=== PATIENT | male | born 1965 | race Caucasian/White ===

== ENCOUNTER 2016-11-11 10:07 | Emergency (ER) | payer MEDICARE ==
[~2016-11-11] VITALS: Ht 185.4 cm; Wt 68.0 kg
[2016-11-11 10:11] VITALS: BP 138/92; PULSE 67; RESP 21; TEMP 98.2; O2SAT 97
[2016-11-11 11:05] LABS: AUTOMATED NEUTROPHIL # 3.5 TH/MM3 (1.8-7.7); BASOPHIL # 0.1 TH/MM3 (0-0.2); BASOPHIL % 1.3 % (0.0-2.0); EOSINOPHIL # 0.1 TH/MM3 (0-0.4); EOSINOPHIL % 2.2 % (0.0-4.0); HEMATOCRIT 42.6 % (39.0-51.0); HEMO FLAGS DIFF FINAL; LYMPH % 33.8 % (9.0-44.0); LYMPHOCYTE # 2.3 TH/MM3 (1.0-4.8); MEAN CELL VOLUME 97.8 FL (80.0-100.0); MEAN CORPUSCULAR HEMOGLOBIN 34.9 PG (27.0-34.0); MEAN CORPUSCULAR HGB CONC 35.7 % (32.0-36.0); MONO % 10.6 % (0.0-8.0); NEUT % 52.1 % (16.0-70.0); PLATELET COUNT 263 TH/MM3 (150-450); RED BLOOD COUNT 4.35 MIL/MM3 (4.50-5.90); RED CELL DISTRIBUTION WIDTH 13.5 % (11.6-17.2); WHITE BLOOD COUNT 6.8 TH/MM3 (4.0-11.0)
--- NOTE | 2016-11-11 11:07 | PD ---
HPI Chief Complaint: Psychiatric Symptoms Time Seen by Provider: 10:31 Travel History International Travel<30 days: No Contact w/Intl Traveler<30days: No Traveled to known affect area: No History of Present Illness HPI This is a 51-year-old male presents emergency Department with a chief complaint of headache and hearing voices in his head. Patient states that he has heard voices a long time and thought there were his neighbor downstairs in [place]. Patient states that the voices got so severe that he needed to get on a flight and moved to [place] which she did recently. On arrival here he was distraught to find out that the voices were still here. 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 Patient is crying during the exam and states that the voices tell him to hurt himself as well. Patient is never been diagnosed with psychiatric disorder. [facility]LY [facility] Past Medical History Anxiety: Yes Depression: Yes Headaches: Yes Insomnia: Yes Psychiatric: Yes (ANXIETY, DEPRESSION, VOICES ) Respiratory: Yes (BRONC) Migraines: Yes Past Surgical History Neurologic Surgery: Yes (CYST REMOVAL BEHIND R EYE AGE 6) Social History Alcohol Use: No Tobacco Use: Yes Substance Use: Yes (SOME POT) Allergies-Medications (Allergen,Severity, Reaction): Coded Allergies: Niacin (Verified Allergy, Severe, 11/11/16) Reported Meds & Prescriptions Reported Meds & Active Scripts Active No Active Prescriptions or Reported Medications Review of Systems Except as stated in HPI: all other systems reviewed are Neg Physical Exam Narrative GENERAL: Well-developed well-nourished, crying. SKIN: Warm and dry. HEAD: Atraumatic. Normocephalic. EYES: Pupils equal and round. No scleral icterus. No injection or drainage. ENT: No nasal bleeding or discharge. Mucous membranes pink and moist. NECK: Trachea midline. No JVD. CARDIOVASCULAR: Regular rate and rhythm. No murmur appreciated. RESPIRATORY: No accessory muscle use. Clear to auscultation. Breath sounds equal bilaterally. GASTROINTESTINAL: Abdomen soft, non-tender, nondistended. Hepatic and splenic margins not palpable. MUSCULOSKELETAL: No obvious deformities. No clubbing. No cyanosis. No edema. NEUROLOGICAL: Awake and alert. No obvious cranial nerve deficits. Motor grossly within normal limits. Normal speech. PSYCHIATRIC: Depressed affect, depressed mood. Patient fairly labile and after returning from CAT scan and is screaming that the voices one-stop talking to him. Endorses suicidal ideation. Data Data Last Documented VS Vital Signs Date Time Temp Pulse Resp B/P Pulse Ox O2 Delivery O2 Flow Rate FiO2 11/11/16 10:11 98.2 67 21 138/92 97 Orders Complete Blood Count With Diff (11/11/16 10:37) Comprehensive Metabolic Panel (11/11/16 10:37) Urinalysis - C+S If Indicated (11/11/16 10:37) Psych Screen (11/11/16 10:37) Drug Screen, Random Urine (11/11/16 10:37) Alcohol (Ethanol) (11/11/16 10:37) Salicylates (Aspirin) (11/11/16 10:37) Tylenol (Acetaminophen) (11/11/16 10:37) Ct Brain W/O Iv Contrast(Rout) (11/11/16 ) Diphenhydramine Inj (Benadryl Inj) (11/11/16 11:30) Prochlorperazine Inj (Compazine Inj) (11/11/16 11:30) Lorazepam Inj (Ativan Inj) (11/11/16 12:15) Labs Laboratory Tests Test 11/11/16 11/11/16 11/11/16 10:45 11:02 12:10 White Blood Count 6.8 TH/MM3 Red Blood Count 4.35 MIL/MM3 Hemoglobin 15.2 GM/DL Hematocrit 42.6 % Mean Corpuscular Volume 97.8 FL Mean Corpuscular Hemoglobin 34.9 PG Mean Corpuscular Hemoglobin 35.7 % Concent Red Cell Distribution Width 13.5 % Platelet Count 263 TH/MM3 Mean Platelet Volume 8.0 FL Neutrophils (%) (Auto) 52.1 % Lymphocytes (%) (Auto) 33.8 % Monocytes (%) (Auto) 10.6 % Eosinophils (%) (Auto) 2.2 % Basophils (%) (Auto) 1.3 % Neutrophils # (Auto) 3.5 TH/MM3 Lymphocytes # (Auto) 2.3 TH/MM3 Monocytes # (Auto) 0.7 TH/MM3 Eosinophils # (Auto) 0.1 TH/MM3 Basophils # (Auto) 0.1 TH/MM3 CBC Comment DIFF FINAL Differential Comment Sodium Level 141 MEQ/L Potassium Level 4.2 MEQ/L Chloride Level 107 MEQ/L Carbon Dioxide Level 27.4 MEQ/L Anion Gap 7 MEQ/L Blood Urea Nitrogen 14 MG/DL Creatinine 0.96 MG/DL Estimat Glomerular Filtration 83 ML/MIN Rate Random Glucose 82 MG/DL Calcium Level 8.9 MG/DL Total Bilirubin 0.6 MG/DL Aspartate Amino Transf 21 U/L (AST/SGOT) Alanine Aminotransferase 26 U/L (ALT/SGPT) Alkaline Phosphatase 63 U/L Total Protein 7.0 GM/DL Albumin 4.1 GM/DL Acetaminophen Level LESS THAN 2.0 MCG/ML Ethyl Alcohol Level LESS THAN 3 MG/DL Salicylates Level 2.5 MG/DL Urine Color YELLOW Urine Turbidity CLEAR Urine pH 6.5 Urine Specific [place] 1.012 Urine Protein NEG mg/dL Urine Glucose (UA) NEG mg/dL Urine Ketones NEG mg/dL Urine Occult Blood NEG Urine Nitrite NEG Urine Bilirubin NEG Urine Urobilinogen LESS THAN 2.0 MG/DL Urine Leukocyte Esterase NEG Urine RBC 1 /hpf Urine WBC 1 /hpf Urine Mucus FEW /lpf Microscopic Urinalysis Comment CULT NOT INDICATED Urine Opiates Screen NEG Urine Barbiturates Screen NEG Urine Amphetamines Screen NEG Urine Benzodiazepines Screen NEG Urine Cocaine Screen POS Urine Cannabinoids Screen POS MDM Medical Decision Making Medical Screen Exam Complete: Yes Emergency Medical Condition: Yes Differential Diagnosis Psychosis, headache, depression, substance abuse, electrolyte abnormality. Narrative Course Supa acted by me in the emergency department for bizarre behavior suicidal ideation. Tylenol salicylates CBC CMP within normal limits. CT head performed and negative. Patient after returning from CT scanner is becoming more agitated given Ativan 2 mg IV. He was also given Benadryl and Compazine for his headache prior to the Ativan. Patient much more compliant after Ativan was given. Patient medically stable for psychiatric evaluation and disposition. He was placed under Cowart act by me. Diagnosis Primary Impression: Acute psychosis Scripts No Active Prescriptions or Reported Meds Disposition: 01 DISCHARGE HOME Condition: Stable Ronaldo High MD Nov 11, 2016 11:07
[2016-11-11 11:28] LABS: ANION GAP 7 MEQ/L (5-15); AST (GOT) 21 U/L (15-37); BICARBONATE 27.4 MEQ/L (21.0-32.0); BLOOD UREA NITROGEN 14 MG/DL (7-18); CHLORIDE 107 MEQ/L (98-107); GLOMERULAR FILTRATION RATE 83 ML/MIN (>89); POTASSIUM 4.2 MEQ/L (3.5-5.1); SODIUM (NA) 141 MEQ/L (136-145)
[2016-11-11] MEDS ORDERED: diphenhydrAMINE HCL 50 MG/ML VIAL IV PUSH ONE (11:30)
[2016-11-11] MEDS ORDERED: PROCHLORPERAZINE INJ 10 MG/2 ML VIAL IVS ONE (11:30)
[2016-11-11 11:31] LABS: ALKALINE PHOSPHATASE 63 U/L (45-117); ALT (GPT) 26 U/L (12-78); TOTAL BILIRUBIN ADULT 0.6 MG/DL (0.2-1.0)
[2016-11-11 11:38] LABS: ACETAMINOPHEN LESS THAN 2.0 MCG/ML (10.0-30.0)
[2016-11-11] MEDS ORDERED: LORazepam 2 MG/ML VIAL IV PUSH ONE (12:15)
[2016-11-11 12:31] LABS: BLOOD, URINE NEG (NEG); COMMENT (UR) CULT NOT INDICATED; CULTURE IF INDICATED CULT NOT INDICATED; GLUCOSE,URINE NEG (NEG); KETONE, URINE NEG (NEG); MUCUS URINE FEW /lpf (OCC); NITRITE,URINE NEG (NEG); PH, URINE 6.5 (5.0-8.5); URINE COLOR YELLOW (YELLW/STRAW)
[2016-11-11 12:32] LABS: AMPHETAMINE, URINE NEG (NEG); BARBITURATES, URINE NEG (NEG); COCAINE, URINE POS (NEG)
--- NOTE | 2016-11-11 13:20 | RADRPT ---
EXAM DATE/TIME: 11/11/2016 12:06 [facility] COMPARISON: No previous studies available for comparison. INDICATIONS : Altered mental status, right side headache. RADIATION DOSE: 35.93 CTDIvol (mGy) MEDICAL HISTORY : None SURGICAL HISTORY : Cyst removed from brain as child. ENCOUNTER: Initial ACUITY: 1 day PAIN SCALE: 4/10 LOCATION: Right cranial TECHNIQUE: Multiple contiguous axial images were obtained of the head. Using automated exposure control and adj ustment of the mA and/or kV according to patient size, radiation dose was kept as low as reasonably a chievable to obtain optimal diagnostic quality images. FINDINGS: CEREBRUM: The ventricles are normal for age. No evidence of midline shift, mass lesion, hemorrhage or acute in farction. No extra-axial fluid collections are seen. POSTERIOR FOSSA: The cerebellum and brainstem are intact. The 4th ventricle is midline. The cerebellopontine angle i s unremarkable. EXTRACRANIAL: Mild to moderate mucosal thickening ethmoid sinuses. SKULL: The calvaria is intact. No evidence of skull fracture. CONCLUSION: Bilateral ethmoid sinus disease. No acute intracranial findings identified. Jerzy Easton MD on November 11, 2016 at 13:17 Board Certified Radiologist. This report was verified electronically.
[2016-11-11 16:01] VITALS: BP 109/63; PULSE 60; RESP 18; TEMP 98.7; O2SAT 98
[2016-11-11 22:24] VITALS: BP 98/68; PULSE 59; RESP 18
[2016-11-12 02:07] VITALS: BP 120/68; PULSE 90; RESP 18; O2SAT 95; O2SAT 98
[2016-11-12 06:38] VITALS: BP 112/67; PULSE 63; RESP 18; O2SAT 97
[2016-11-12 10:46] VITALS: BP 112/67
[2016-11-12 12:00] VITALS: BP 123/84; PULSE 91; RESP 18
== END 2016-11-12 14:21 | disposition home or self-care (01) ==
LOC: NEPE 10:07 → NEPJ 11-12 14:21
DX: F23 Brief psychotic disorder (principal); R51 Headache; F41.8 Other specified anxiety disorders; G47.00 Insomnia, unspecified; Z72.0 Tobacco use
CPT/HCPCS: 70450; 80053; 80307; 81001; 85025; 96374; 96375; 99285; J0780; J1200; J2060; 80320; 80329; G0480

== ENCOUNTER 2016-12-28 19:17 | Inpatient (IN) | payer MEDICARE, OTHER ==
[~2016-12-28] VITALS: Ht 185.4 cm; Wt 68.5 kg
[2016-12-28 19:26] VITALS: BP 123/91; PULSE 91; RESP 18; TEMP 96.9; O2SAT 95
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
[2016-12-28 20:18] LABS: AUTOMATED NEUTROPHIL # 5.4 TH/MM3 (1.8-7.7); BASOPHIL # 0.1 TH/MM3 (0-0.2); BASOPHIL % 0.9 % (0.0-2.0); EOSINOPHIL # 0.4 TH/MM3 (0-0.4); HEMO FLAGS DIFF FINAL; LYMPH % 26.2 % (9.0-44.0); LYMPHOCYTE # 2.4 TH/MM3 (1.0-4.8); MEAN CELL VOLUME 95.9 FL (80.0-100.0); MEAN CORPUSCULAR HEMOGLOBIN 33.6 PG (27.0-34.0); MONO % 9.2 % (0.0-8.0); NEUT % 59.7 % (16.0-70.0); PLATELET COUNT 297 TH/MM3 (150-450); RED BLOOD COUNT 4.49 MIL/MM3 (4.50-5.90); RED CELL DISTRIBUTION WIDTH 13.4 % (11.6-17.2)
[2016-12-28 20:30] LABS: ANION GAP 6 MEQ/L (5-15)
[2016-12-28 20:33] LABS: ALKALINE PHOSPHATASE 78 U/L (45-117); ALT (GPT) 25 U/L (12-78); AST (GOT) 14 U/L (15-37); BLOOD UREA NITROGEN 18 MG/DL (7-18); CHLORIDE 106 MEQ/L (98-107); GLOMERULAR FILTRATION RATE 74 ML/MIN (>89); POTASSIUM 4.1 MEQ/L (3.5-5.1); SODIUM (NA) 140 MEQ/L (136-145); TOTAL BILIRUBIN ADULT 0.3 MG/DL (0.2-1.0)
[2016-12-28] MEDS ORDERED: QUET1TAB9 PO (20:53)
[2016-12-28 23:22] VITALS: BP 122/77; PULSE 87; RESP 16; O2SAT 98
[2016-12-29 03:01] LABS: AMPHETAMINE, URINE NEG (NEG); BARBITURATES, URINE NEG (NEG); COCAINE, URINE NEG (NEG)
[2016-12-29] MEDS ORDERED: MAGNESIUM HYDROXIDE SUSP 30 ML CUP PO PRN (08:15)
[2016-12-29] MEDS ORDERED: BENZTROPINE MESYLATE 2 MG/2 ML VIAL IM PRN (08:15)
[2016-12-29] MEDS ORDERED: BENZTROPINE MESYLATE 1 MG TAB PO PRN (08:15)
[2016-12-29] MEDS ORDERED: diphenhydrAMINE HCL 50 MG CAP PO PRN (08:15)
[2016-12-29] MEDS ORDERED: LORazepam 2 MG/ML VIAL IM PRN (08:15)
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
[2016-12-29] MEDS: REMOVE OLD PATCH T-DERMAL SCH (09:00)
[2016-12-29 09:46] VITALS: BP 119/81; PULSE 72; RESP 18; TEMP 98; O2SAT 98
[2016-12-29] MEDS: NICOTINE 21 MG/24 HR PATCH T-DERMAL SCH (10:03)
[2016-12-29] MEDS: QUEtiapine FUMARATE 100 MG TAB PO SCH (10:19)
[2016-12-29 11:37] VITALS: BP 112/71; PULSE 79; RESP 18; TEMP 97.8
[2016-12-29] MEDS: LORazepam 1 MG TAB PO PRN (14:45)
[2016-12-29] MEDS: IBUPROFEN 600 MG TAB PO PRN (15:24)
[2016-12-29 19:11] VITALS: BP 100/65; PULSE 80; RESP 16; TEMP 98.9; O2SAT 98
[2016-12-29] MEDS: QUEtiapine FUMARATE 200 MG TAB PO SCH (21:33)
[2016-12-29] MEDS: ACETAMINOPHEN 325 MG TAB PO PRN (21:33)
[2016-12-30] MEDS: NICOTINE 21 MG/24 HR PATCH T-DERMAL SCH (08:43)
[2016-12-30] MEDS: QUEtiapine FUMARATE 100 MG TAB PO SCH (08:43)
[2016-12-30] MEDS: REMOVE OLD PATCH T-DERMAL SCH (08:46)
[2016-12-30 09:57] LABS: ANION GAP 4 MEQ/L (5-15); BICARBONATE 32.1 MEQ/L (21.0-32.0); BLOOD UREA NITROGEN 16 MG/DL (7-18); CHLORIDE 105 MEQ/L (98-107); GLOMERULAR FILTRATION RATE 77 ML/MIN (>89); LDL CHOLESTEROL 83 MG/DL (0-99); POTASSIUM 4.7 MEQ/L (3.5-5.1); SODIUM (NA) 141 MEQ/L (136-145)
[2016-12-30 11:07] LABS: HEMOGLOBIN A1a 1.4 %; HEMOGLOBIN A1b 1.7 %; HEMOGLOBIN Ao 84.7 %; HEMOGLOBIN LA1C 2.1 %; HEMOGLOBIN P3 3.9 %
[2016-12-30] MEDS: ALUMINUM/MAGNESIUM/SIMETH 30 ML CUP PO PRN (17:50)
[2016-12-30 18:07] VITALS: BP 112/69; PULSE 77; RESP 18; TEMP 98.4; O2SAT 97
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
[2016-12-30] MEDS: QUEtiapine FUMARATE 200 MG TAB PO SCH (21:53)
[2016-12-30] MEDS: LORazepam 1 MG TAB PO PRN (21:56)
[2016-12-31 05:26] VITALS: BP 103/57; PULSE 78; RESP 18; TEMP 98; O2SAT 98
[2016-12-31] MEDS: REMOVE OLD PATCH T-DERMAL SCH (08:22)
[2016-12-31] MEDS: NICOTINE 21 MG/24 HR PATCH T-DERMAL SCH (08:22)
[2016-12-31] MEDS: QUEtiapine FUMARATE 100 MG TAB PO SCH (08:22)
[2016-12-31] MEDS: ACETAMINOPHEN 325 MG TAB PO PRN (15:21)
[2016-12-31 18:00] VITALS: BP 116/67; PULSE 92; RESP 18; TEMP 98.5; O2SAT 97
--- NOTE | 2016-12-31 21:28 | HHI.PYPN ---
Subjective Remarks Pt seen and discussed with staff. Pt reports that AH have diminished today and he denies medication side effects. He has been out of room and more engaged in milieu. NO SI/HI. Objective Alert: Yes [place]: Person, Place, Date, Situation Mood: Anxious Affect: Restricted Memory Intact: Immediate, Recent, Remote Hallucinations: Other (none) Delusions: Yes Delusion Type: Paranoid Suicidal: Ideation (denies) Homicidal: Ideation (denies) Insight/Judgment limited Vitals/IOs Vital Signs Date Time Temp Pulse Resp B/P Pulse Ox O2 Delivery O2 Flow Rate FiO2 12/31/16 18:00 98.5 92 18 116/67 97 12/29/16 09:46 Room Air Assessment & Plan Problem List: (1) Other psychotic disorder not due to a substance or known physiological condition ICD Code: F28 Assessment & Plan Continue current tx plan. Estimated LOS: days Justification for Cont. Inpt. impairments in reality construction Trinh Rios MD Dec 31, 2016 21:27
[2016-12-31] MEDS: IBUPROFEN 600 MG TAB PO PRN (21:40)
[2016-12-31] MEDS: LORazepam 1 MG TAB PO PRN (21:40)
[2016-12-31] MEDS: QUEtiapine FUMARATE 200 MG TAB PO SCH (21:40)
[2017-01-01 06:41] VITALS: BP 116/62; PULSE 76; RESP 18; TEMP 97.7; O2SAT 96
[2017-01-01] MEDS: REMOVE OLD PATCH T-DERMAL SCH (09:00)
[2017-01-01] MEDS: QUEtiapine FUMARATE 100 MG TAB PO SCH (09:17)
[2017-01-01] MEDS: NICOTINE 21 MG/24 HR PATCH T-DERMAL SCH (09:20)
--- NOTE | 2017-01-01 15:48 | HHI.PYPN ---
Subjective Remarks Patient seen in [facility] with nurse Cherie, chart reviewed. Patient appears somewhat silly and childlike, states his auditory hallucinations are softening somewhat not as aggressive or intimidating as before. Is compliant with medication. He denies suicidality at the present time. Though it appears he has been in multiple psychiatric units the area over the last few weeks. For now continue treatment. Review of Systems Except as stated in HPI: all other systems reviewed are Neg Objective Alert: Yes [place]: Person, Place, Date, Situation Mood: Anxious Affect: Restricted Memory Intact: Immediate, Recent, Remote Hallucinations: Other (none) Delusions: Yes Delusion Type: Paranoid Suicidal: Ideation (denies) Homicidal: Ideation (denies) Insight/Judgment Poor Vitals/IOs Vital Signs Date Time Temp Pulse Resp B/P Pulse Ox O2 Delivery O2 Flow Rate FiO2 01/01/17 06:41 97.7 76 18 116/62 96 12/29/16 09:46 Room Air Intake and Output 12/31/16 12/31/16 01/01/17 08:00 16:00 00:00 Intake Total 480 ml Balance 480 ml Assessment & Plan Problem List: (1) Other psychotic disorder not due to a substance or known physiological condition ICD Code: F28 Assessment & Plan Estimated LOS: days patient psychosis is softening, his compliant medications, for now continue treatment Justification for Cont. Inpt. At this time patient will decompensate if placed in a lower level of care Discharge Planning To be determined Chandra Chavez MD Jan 01, 2017 15:48
[2017-01-01 19:52] VITALS: BP 119/67; PULSE 83; RESP 18; TEMP 97.6; O2SAT 99
[2017-01-01] MEDS: QUEtiapine FUMARATE 200 MG TAB PO SCH (21:17)
[2017-01-01] MEDS: ALUMINUM/MAGNESIUM/SIMETH 30 ML CUP PO PRN (22:22)
[2017-01-02 06:08] VITALS: BP 115/74; PULSE 77; RESP 18; TEMP 97; O2SAT 97
[2017-01-02] MEDS: REMOVE OLD PATCH T-DERMAL SCH (09:00)
[2017-01-02] MEDS: QUEtiapine FUMARATE 100 MG TAB PO SCH (09:11)
[2017-01-02] MEDS: NICOTINE 21 MG/24 HR PATCH T-DERMAL SCH (09:12)
--- NOTE | 2017-01-02 11:59 | HHI.PYPN ---
Subjective Remarks Patient seen in activities room with nurse Sana, chart reviewed. Patient continues somewhat superficial childlike and intense though he says he is feeling better. He states the voices are now gone and he denies any suicidality , he is compliant with medication. For now continue treatment Review of Systems Except as stated in HPI: all other systems reviewed are Neg Objective Alert: Yes [place]: Person, Place, Date, Situation Mood: Anxious Affect: Restricted Memory Intact: Immediate, Recent, Remote Hallucinations: Other (none) Delusions: Yes Delusion Type: Paranoid (decreasing) Suicidal: Ideation (denies) Homicidal: Ideation (denies) Insight/Judgment Poor Vitals/IOs Vital Signs Date Time Temp Pulse Resp B/P Pulse Ox O2 Delivery O2 Flow Rate FiO2 01/02/17 06:08 97.0 77 18 115/74 97 12/29/16 09:46 Room Air Assessment & Plan Problem List: (1) Other psychotic disorder not due to a substance or known physiological condition ICD Code: F28 Assessment & Plan Estimated LOS: days patient psychosis is slowly resolving. Is compliant with medications. For now continue treatment Justification for Cont. Inpt. At this time patient will decompensate if placed in a lower level of care Discharge Planning To be determined Chandra Chavez MD Jan 02, 2017 11:59
[2017-01-02 19:00] VITALS: BP 107/76; PULSE 76; RESP 18; TEMP 97.9; O2SAT 96
[2017-01-02] MEDS: ACETAMINOPHEN 325 MG TAB PO PRN (21:29)
[2017-01-02] MEDS: QUEtiapine FUMARATE 200 MG TAB PO SCH (21:30)
[2017-01-03 06:00] VITALS: BP 118/72; PULSE 70; RESP 18; TEMP 98.3; O2SAT 97
[2017-01-03] MEDS: REMOVE OLD PATCH T-DERMAL SCH (09:00)
[2017-01-03] MEDS ORDERED: QUET1TAB8 PO (09:04)
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
[2017-01-03] MEDS: QUEtiapine FUMARATE 100 MG TAB PO SCH (09:14)
[2017-01-03] MEDS: NICOTINE 21 MG/24 HR PATCH T-DERMAL SCH (09:16)
== END 2017-01-03 13:30 | disposition home or self-care (01) | DRG 885 ==
LOC: NEDAMB 19:17 → NEDA 12-29 08:15 → H260 12-29 10:40
PROVIDERS: ADMIT Psychiatry & Neurology Psychiatry; ATTEND Psychiatry & Neurology Psychiatry
DX: F28 Other psychotic disorder not due to a substance or known physiological condition (principal); R45.851 Suicidal ideations; Z59.0 Homelessness; G44.009 Cluster headache syndrome, unspecified, not intractable; F12.90 Cannabis use, unspecified, uncomplicated; F17.210 Nicotine dependence, cigarettes, uncomplicated
CPT/HCPCS: 80048; 80053; 80061; 80307; 82607; 83036; 84443; 85025; 86592; 99284; Q0163

== ENCOUNTER 2017-02-10 21:52 | Observation (INO) | payer MEDICARE, OTHER ==
[~2017-02-10] VITALS: Ht 185.4 cm; Wt 70.0 kg
[~2017-02-10 21:52] MED LIST: QUET1TAB8 PO
--- NOTE | 2017-02-10 22:03 | PD ---
HPI Chief Complaint: chest pain Time Seen by Provider: 22:03 Travel History International Travel<30 days: No Contact w/Intl Traveler<30days: No History of Present Illness HPI 51-year-old male with PMH of chronic right leg pain, chronic headaches presents to the ED for evaluation of a 10 hour history of left-sided chest pain. Onset at rest, described as a tightness. Gradual onset, lasts 20-30 seconds before resolving spontaneously. Patient endorses associated diaphoresis and shortness of breath. He denies radiation of the pain, nausea or vomiting. He denies recent history of fever, chills, productive cough. He's never had this kind of pain before. He has never had his heart evaluated. He endorses increased stress over the last week, states that he is homeless, having difficulties receiving his social security check. He denies suicidal or homicidal ideation. He denies alcohol or illicit drug use. He is a current smoker. PFSH Past Medical History Anxiety: Yes Depression: Yes Cancer: Yes (tumors were removed but may be non cancerous ) Cardiovascular Problems: No Diabetes: No Headaches: Yes Insomnia: Yes Musculoskeletal: No Psychiatric: No Respiratory: Yes ([facility]) Migraines: Yes Seizures: No Past Surgical History Neurologic Surgery: Yes (CYST REMOVAL BEHIND R EYE AGE 6) Social History Alcohol Use: No Tobacco Use: Yes Substance Use: Yes (admits to occasional marijuana use) Allergies-Medications (Allergen,Severity, Reaction): Coded Allergies: Niacin (Verified Allergy, Severe, 02/10/17) Reported Meds & Prescriptions Reported Meds & Active Scripts Active Quetiapine (Quetiapine Fumarate) 100 Mg Tab 100 Mg PO DIRECTED 1 po am, 2 po hs Reported Seroquel (Quetiapine Fumarate) 200 Mg Tab 200 Mg PO HS Review of Systems Except as stated in HPI: all other systems reviewed are Neg Physical Exam Narrative GENERAL: Well-nourished, well-developed, disheveled, tremulous white male in no acute distress. SKIN: Focused skin assessment warm/dry. HEAD: Normocephalic. EYES: No scleral icterus. No injection or drainage. PERRLA. EOMI. NECK: Supple, trachea midline. No JVD or lymphadenopathy. CARDIOVASCULAR: Regular rate and rhythm without murmurs, gallops, or rubs. CHEST: Tender to palpation over the left precordium. Without deformity or crepitus. No retractions. RESPIRATORY: Breath sounds equal bilaterally. No accessory muscle use. GASTROINTESTINAL: Abdomen soft, non-tender, nondistended. Active bowel sounds. MUSCULOSKELETAL: No cyanosis, or edema. Patient is extremities spontaneously. BACK: Nontender without obvious deformity. No CVA tenderness. Data Data Last Documented VS Vital Signs Date Time Temp Pulse Resp B/P Pulse Ox O2 Delivery O2 Flow Rate FiO2 02/10/17 22:08 98.5 67 20 85/ Orders Electrocardiogram (02/10/17 22:36) Basic Metabolic Panel (Bmp) (02/10/17 22:36) Ckmb (Isoenzyme) Profile (02/10/17 22:36) Complete Blood Count With Diff (02/10/17 22:36) Magnesium (Mg) (02/10/17 22:36) Prothrombin Time / Inr (Pt) (02/10/17 22:36) Act Partial Throm Time (Ptt) (02/10/17 22:36) Troponin I (02/10/17 22:36) Chest, Single Ap (02/10/17 22:36) Ecg Monitoring (02/10/17 22:36) Bilateral Bp Monitoring (02/10/17 22:36) Iv Access Insert/Monitor (02/10/17 22:36) Oximetry (02/10/17 22:36) Aspirin Chew (Aspirin Chew) (02/10/17 22:45) Sodium Chloride 0.9% Flush (Ns Flush) (02/10/17 22:45) Nitroglycerin Sl (Nitrostat Sl) (02/10/17 22:45) Sodium Chlorid 0.9% 500 Ml Inj (Ns 500 M (02/10/17 22:45) Ibuprofen (Motrin) (02/10/17 22:45) MDM Medical Decision Making Medical Screen Exam Complete: Yes Emergency Medical Condition: Yes Differential Diagnosis Chest pain versus musculoskeletal pain versus ACS versus anxiety versus alcohol withdrawal versus other Narrative Course 51-year-old male with PMH of chronic right leg pain, chronic headaches presents to the ED for evaluation of a 10 hour history of left-sided chest pain. Onset at rest, described as a tightness. Gradual onset, lasts 20-30 seconds before resolving spontaneously. Patient endorses associated diaphoresis and shortness of breath. He denies radiation of the pain, nausea or vomiting. He denies recent history of fever, chills, productive cough. He's never had this kind of pain before. He has never had a cardiac workup. He endorses increased stress over the last week, states that he is homeless, having difficulties receiving his social security check. He denies suicidal or homicidal ideation. He denies alcohol or illicit drug use. He is a current smoker. Vitals reviewed. Physical exam reveals a tremulous white male in no acute distress. There is reproducible tenderness to palpation over the left precordium but the physical exam is otherwise unremarkable. Patient was administered ASA, nitroglycerin glycerin 2, 600 mg ibuprofen. EKG: Rate 70, sinus rhythm. MT interval 135, QRS 101, QTc 387. Normal axis. No acute ST changes. Reviewed by Dr. Catalan. CBC, CMP, UA, tox screen, alcohol level, cardiac enzymes, chest x-ray ordered and pending at this time. Anticipate admission to the chest pain center. Dr. Catalan to assume care of this patient. Please see her note for disposition. Siobhan Brown February 10, 2017 22:03
[2017-02-10 22:08] VITALS: BP_SYST 85; PULSE 67; RESP 20; TEMP 98.5
[2017-02-10] MEDS ORDERED: SERO200T PO (22:08)
[2017-02-10] MEDS ORDERED: IBUPROFEN 600 MG TAB PO ONE (22:45)
[2017-02-10] MEDS ORDERED: SODIUM CHLORID 0.9% 500 ML INJ 500 ML IV ONE (22:45)
[2017-02-10] MEDS ORDERED: ASPIRIN 81 MG CHEW TAB PO ONE (22:45)
[2017-02-10] MEDS ORDERED: SODIUM CHLORIDE 0.9% FLUSH 10 ML FLUSH IVF PRN (22:45)
[2017-02-10 23:00] VITALS: BP 119/77; PULSE 62; RESP 20
[2017-02-10] MEDS: NITROGLYCERIN 0.4 MG SL 25 TABS/BTL SL SCH (23:22)
--- NOTE | 2017-02-10 23:32 | RADRPT ---
EXAM DATE/TIME: 02/10/2017 22:51 [facility] COMPARISON: No previous studies available for comparison. INDICATIONS : Left side chest pain, cough MEDICAL HISTORY : None. SURGICAL HISTORY : None. ENCOUNTER: Initial ACUITY: 1 day PAIN SCORE: 6/10 LOCATION: Left chest FINDINGS: A single view of the chest demonstrates the lungs to be symmetrically aerated without evidence of mas s, infiltrate or effusion. The cardiomediastinal contours are unremarkable. Osseous structures are intact. CONCLUSION: No acute disease. Juni Krishnamurthy MD on February 10, 2017 at 23:30 Board Certified Radiologist. This report was verified electronically.
[2017-02-10 23:33] LABS: AUTOMATED NEUTROPHIL # 3.7 TH/MM3 (1.8-7.7); BASOPHIL # 0.1 TH/MM3 (0-0.2); BASOPHIL % 1.4 % (0.0-2.0); EOSINOPHIL # 0.2 TH/MM3 (0-0.4); EOSINOPHIL % 2.3 % (0.0-4.0); HEMATOCRIT 41.1 % (39.0-51.0); HEMO FLAGS DIFF FINAL; LYMPH % 35.4 % (9.0-44.0); LYMPHOCYTE # 2.7 TH/MM3 (1.0-4.8); MEAN CELL VOLUME 96.8 FL (80.0-100.0); MEAN CORPUSCULAR HEMOGLOBIN 32.8 PG (27.0-34.0); MEAN CORPUSCULAR HGB CONC 33.9 % (32.0-36.0); MONO % 12.8 % (0.0-8.0); NEUT % 48.1 % (16.0-70.0); PLATELET COUNT 261 TH/MM3 (150-450); RED BLOOD COUNT 4.25 MIL/MM3 (4.50-5.90); RED CELL DISTRIBUTION WIDTH 13.7 % (11.6-17.2); WHITE BLOOD COUNT 7.6 TH/MM3 (4.0-11.0)
[2017-02-10 23:43] LABS: APTT (PATIENT) 27.4 SEC (24.3-30.1); PROTHROMBIN TIME - PATIENT 11.5 SEC (9.8-11.6)
[2017-02-10 23:44] LABS: BLOOD, URINE TRACE (NEG); COMMENT (UR) CULT NOT INDICATED; CULTURE IF INDICATED CULT NOT INDICATED; GLUCOSE,URINE NEG (NEG); KETONE, URINE TRACE mg/dL (NEG); MUCUS URINE FEW /lpf (OCC); NITRITE,URINE NEG (NEG); URINE COLOR YELLOW (YELLW/STRAW)
[2017-02-10 23:47] LABS: ANION GAP 9 MEQ/L (5-15); BLOOD UREA NITROGEN 23 MG/DL (7-18); CHLORIDE 108 MEQ/L (98-107); GLOMERULAR FILTRATION RATE 71 ML/MIN (>89); MAGNESIUM 2.2 MG/DL (1.5-2.5); POTASSIUM 3.8 MEQ/L (3.5-5.1); SODIUM (NA) 144 MEQ/L (136-145)
[2017-02-10 23:49] LABS: AMPHETAMINE, URINE NEG (NEG); BARBITURATES, URINE NEG (NEG); COCAINE, URINE NEG (NEG)
[2017-02-10 23:52] LABS: CREATINE KINASE 148 U/L (39-308)
[2017-02-11] VITALS (10 sets, daily range): BP systolic 105–129; BP diastolic 50–79; PULSE 56–77; RESP 14–20; TEMP 97.6–98.3; O2SAT 93–97
[2017-02-11 00:05] LABS: CKMB 1.6 NG/ML (0.5-3.6)
--- NOTE | 2017-02-11 00:07 | PD ---
Physical Exam Date Seen by Provider: February 11, 2017 Time Seen by Provider: 23:30 Narrative assumed patient care from A Kevin BANDA Data Data Last Documented VS Vital Signs Date Time Temp Pulse Resp B/P Pulse Ox O2 Delivery O2 Flow Rate FiO2 02/10/17 22:08 98.5 67 20 85/ Orders Electrocardiogram (02/10/17 22:36) Basic Metabolic Panel (Bmp) (02/10/17 22:36) Ckmb (Isoenzyme) Profile (02/10/17 22:36) Complete Blood Count With Diff (02/10/17 22:36) Magnesium (Mg) (02/10/17 22:36) Prothrombin Time / Inr (Pt) (02/10/17 22:36) Act Partial Throm Time (Ptt) (02/10/17 22:36) Troponin I (02/10/17 22:36) Chest, Single Ap (02/10/17 22:36) Ecg Monitoring (02/10/17 22:36) Bilateral Bp Monitoring (02/10/17 22:36) Iv Access Insert/Monitor (02/10/17 22:36) Oximetry (02/10/17 22:36) Aspirin Chew (Aspirin Chew) (02/10/17 22:45) Sodium Chloride 0.9% Flush (Ns Flush) (02/10/17 22:45) Nitroglycerin Sl (Nitrostat Sl) (02/10/17 22:45) Sodium Chlorid 0.9% 500 Ml Inj (Ns 500 M (02/10/17 22:45) Ibuprofen (Motrin) (02/10/17 22:45) Urinalysis - C+S If Indicated (02/10/17 22:46) Drug Screen, Random Urine (02/10/17 22:46) Alcohol (Ethanol) (02/10/17 22:46) CKMB (02/10/17 23:15) CKMB% (02/10/17 23:15) Alprazolam (Xanax) (02/11/17 00:15) Admit Order (Ed Use Only) (02/11/17 ) ^ Saline Lock (02/11/17 00:09) Resp Oxygen Alberto C Titrat 1-4 L (02/11/17 ) Notify Dr: Other (02/11/17 00:09) Sodium Chloride 0.9% Flush (Ns Flush) (02/11/17 09:00) Sodium Chloride 0.9% Flush (Ns Flush) (02/11/17 00:15) Activity Bed Rest With Brp (02/11/17 00:09) Vital Signs (Adult) Q4H (02/11/17 00:09) Cardiac Rhythm .As Directed (02/11/17 00:09) Notify Dr: Other .PRN (02/11/17 00:09) Notify DrBlanca Parameters (02/11/17 00:09) Resp Oxygen Nasal Cannula (02/11/17 ) Ckmb (Isoenzyme) Profile (02/11/17 02:00) Ckmb (Isoenzyme) Profile (02/11/17 05:00) Troponin I (02/11/17 02:00) Troponin I (02/11/17 05:00) Electrocardiogram (02/11/17 02:00) Electrocardiogram (02/11/17 05:00) ^ Obtain (02/11/17 00:09) Sodium Chloride 0.9% Flush (Ns Flush) (02/11/17 00:15) Sodium Chloride 0.9% Flush (Ns Flush) (02/11/17 09:00) Acetaminophen (Tylenol) (02/11/17 00:15) Acetamin-Hydrocod 325-7.5 Mg ([place] 7.5 (02/11/17 00:15) Ondansetron Inj (Zofran Inj) (02/11/17 00:15) Nitroglycerin Sl (Nitrostat Sl) (02/11/17 00:15) Aspirin (Aspirin) (02/11/17 09:00) Alprazolam (Xanax) (02/11/17 00:15) Fx Artist / Telemetry HEMANT.Q8H (02/11/17 00:09) Labs Laboratory Tests Test 02/10/17 23:15 White Blood Count 7.6 TH/MM3 Red Blood Count 4.25 MIL/MM3 Hemoglobin 13.9 GM/DL Hematocrit 41.1 % Mean Corpuscular Volume 96.8 FL Mean Corpuscular Hemoglobin 32.8 PG Mean Corpuscular Hemoglobin 33.9 % Concent Red Cell Distribution Width 13.7 % Platelet Count 261 TH/MM3 Mean Platelet Volume 8.7 FL Neutrophils (%) (Auto) 48.1 % Lymphocytes (%) (Auto) 35.4 % Monocytes (%) (Auto) 12.8 % Eosinophils (%) (Auto) 2.3 % Basophils (%) (Auto) 1.4 % Neutrophils # (Auto) 3.7 TH/MM3 Lymphocytes # (Auto) 2.7 TH/MM3 Monocytes # (Auto) 1.0 TH/MM3 Eosinophils # (Auto) 0.2 TH/MM3 Basophils # (Auto) 0.1 TH/MM3 CBC Comment DIFF FINAL Differential Comment Prothrombin Time 11.5 SEC Prothromb Time International 1.0 RATIO Ratio Activated Partial 27.4 SEC Thromboplast Time Urine Color YELLOW Urine Turbidity CLEAR Urine pH 6.0 Urine Specific [place] 1.031 Urine Protein TRACE mg/dL Urine Glucose (UA) NEG mg/dL Urine Ketones TRACE mg/dL Urine Occult Blood TRACE Urine Nitrite NEG Urine Bilirubin NEG Urine Urobilinogen LESS THAN 2.0 MG/DL Urine Leukocyte Esterase NEG Urine RBC 7 /hpf Urine WBC 2 /hpf Urine Mucus FEW /lpf Microscopic Urinalysis Comment CULT NOT INDICATED Sodium Level 144 MEQ/L Potassium Level 3.8 MEQ/L Chloride Level 108 MEQ/L Carbon Dioxide Level 27.0 MEQ/L Blood Urea Nitrogen 23 MG/DL Creatinine 1.10 MG/DL Random Glucose 86 MG/DL Calcium Level 8.4 MG/DL Magnesium Level 2.2 MG/DL Urine Opiates Screen NEG Urine Barbiturates Screen NEG Urine Amphetamines Screen NEG Urine Benzodiazepines Screen POS Urine Cocaine Screen NEG Urine Cannabinoids Screen POS Ethyl Alcohol Level LESS THAN 3 MG/DL Anion Gap 9 MEQ/L Estimat Glomerular Filtration 71 ML/MIN Rate Total Creatine Kinase 148 U/L Creatine Kinase MB 1.6 NG/ML Troponin I LESS THAN 0.02 NG/ML [facility] Medical Record Reviewed: Yes Supervised Visit with YINA: Yes Interpretation(s) EKG: Normal sinus rhythm rate [address] elevation or injury pattern change noted Last Impressions Chest X-Ray 02/10/172 Signed Impressions: Service Date/Time: Friday, February 10, 2017 22:51 - CONCLUSION: No acute disease. Juni Krishnamurthy MD CBC & BMP Diagram 02/10/17 23:15 troponin I: less than 0.02 Urine drug screen positive for cannabinoids and benzodiazepines Differential Diagnosis Chest pain, atypical chest pain, ACS, PR, musculoskeletal pain, pleurisy, costochondritis, pneumonia Narrative Course Accepted in transfer of care from Ronald Brown for chest pain or exertional resolve nitroglycerin with history of tobaccoism age 51; chest pain improved after nitroglycerin and aspirin; patient with chronic anxiety disorder given one -time dose of Xanax; no alcohol use history admits to rare cannabis use. Will admit to chest pain center to further evaluate cardiac versus noncardiac chest pain due to risk factors of female age 51 tobaccoism. Patient also with history of chronic left right femur pain that is not new and has not exacerbated and no edema of the lower extremity. Diagnosis Primary Impression: Chest pain Admitting Information Admitting Physician Requests: Mana Mcintyre MD February 11, 2017 00:07
[2017-02-11] MEDS ORDERED: ACETAMINOPHEN 500 MG CPLT PO PRN (00:15)
[2017-02-11] MEDS ORDERED: ONDANSETRON HCL 4 MG/2 ML VIAL IV PRN (00:15)
[2017-02-11] MEDS ORDERED: ALPRAZolam 0.25 MG TAB PO PRN (00:15)
[2017-02-11] MEDS ORDERED: SODIUM CHLORIDE 0.9% FLUSH 10 ML FLUSH PRN (00:15)
[2017-02-11] MEDS ORDERED: ACETAMINOPHEN/HYDROcodone 325 MG/7.5 MG TAB PO PRN (00:15)
[2017-02-11] MEDS ORDERED: SODIUM CHLORIDE 0.9% FLUSH 10 ML FLUSH IVF PRN (00:15)
[2017-02-11] MEDS ORDERED: ALPRAZolam 1 MG TAB PO ONE (00:15)
[2017-02-11] MEDS ORDERED: NITROGLYCERIN 0.4 MG SL 25 TABS/BTL SL PRN (00:15)
[2017-02-11] MEDS: NITROGLYCERIN 0.4 MG SL 25 TABS/BTL SL SCH (00:24)
[2017-02-11 02:58] LABS: CREATINE KINASE 125 U/L (39-308)
[2017-02-11 03:10] LABS: CKMB 1.5 NG/ML (0.5-3.6)
[2017-02-11 06:07] LABS: CREATINE KINASE 128 U/L (39-308)
[2017-02-11 06:19] LABS: CKMB 1.3 NG/ML (0.5-3.6)
[2017-02-11] MEDS ORDERED: ASPIRIN 325 MG TAB PO SCH (09:00)
[2017-02-11] MEDS ORDERED: SODIUM CHLORIDE 0.9% FLUSH 10 ML FLUSH SCH (09:00)
[2017-02-11] MEDS ORDERED: SODIUM CHLORIDE 0.9% FLUSH 10 ML FLUSH IV FLUSH SCH (09:00)
--- NOTE | 2017-02-11 10:59 | HHI.HP ---
HPI Primary Care Physician Unknown Chief Complaint Chest pain History of Present Illness This is a 51-year-old male that presents to ED with a complaint of left-sided chest discomfort that he describes as squeezing in nature. We'll last about 10 minutes. He's found nothing to bring on the discomfort. He also states he's had a sensation of his heart vibrating intimately also for month. When it occurs it last for about 5 minutes. He times short of breath and diaphoretic. No nausea. He cannot recall prior stress testing. Patient states he is tired of dealing with the symptoms. The nurse was concerned, he was very anxious. I asked the patient if he was having suicidal ideations and he denied this. I repeated the question infantum nurse fireworks assembler and he still denies having thoughts of wanting to harm himself or others. Review of Systems General: Patient denies fevers, chills recent, and recent travel HEENT: Patient denies headache, sore throat, difficulty swallowing. Cardiovascular: Has the chest discomfort as mentioned above. Feels as if his heart is vibrating. Denies sensation of heart beating rapidly or irregularly. No syncope. Respiratory: Denies shortness of breath or inspirational chest discomfort. Denies coughing wheezing or hemoptysis. GI: Patient denies nausea, vomiting, diarrhea, abdominal pain, bloody stools. Musculoskeletal: Patient denies joint pain or edema. Denies calf pain or edema. Neurovascular: Patient denies numbness, tingling, weakness in extremities. Denies headache. Endocrine: Denies polyuria and polydipsia. Hematologic: Denies easy bruising. Skin: Denies rash or itching. Past Family Social History Allergies: Coded Allergies: Niacin (Verified Allergy, Severe, 02/10/17) Past Medical History Depression, chronic headaches, tobacco abuse. Denies hypertension, hyperlipidemia, diabetes, and CAD. Past Surgical History Noncontributory. Reported Medications Reported Meds & Active Scripts Active Quetiapine (Quetiapine Fumarate) 100 Mg Tab 100 Mg PO DIRECTED 1 po am, 2 po hs Reported Seroquel (Quetiapine Fumarate) 200 Mg Tab 200 Mg PO HS Active Ordered Medications Current Medications Medications (Trade) Dose Ordered Sig/Alek Route Start Time Stop Time Status Last Admin (NS Flush) 2 ml UNSCH PRN IVF 02/10/17 22:45 (NS Flush) 2 ml BID IV FLUSH 02/11/17 09:00 02/11/17 09:16 (NS Flush) 2 ml UNSCH PRN IVF 02/11/17 00:15 (NS Flush) 2 ml UNSCH PRN .XX 02/11/17 00:15 (NS Flush) 2 ml BID .XX 02/11/17 09:00 02/11/17 09:14 (Tylenol) 500 mg Q4H PRN PO 02/11/17 00:15 02/11/17 09:15 ([place] 7.5-325 Mg) 1 tab Q4H PRN PO 02/11/17 00:15 (Zofran Inj) 4 mg Q6H PRN IV 02/11/17 00:15 (Nitrostat Sl) 0.4 mg Q5M PRN SL 02/11/17 00:15 (Aspirin) 325 mg DAILY PO 02/11/17 09:00 02/11/17 09:14 (Xanax) 0.25 mg Q8H PRN PO 02/11/17 00:15 Family History Denies family history of CAD. Social History Patient smokes three-quarter pack of cigarettes daily for 32 years. Denies alcohol. He smokes marijuana. Lives alone. Physical Exam Vital Signs Vital Signs Date Time Temp Pulse Resp B/P Pulse Ox O2 Delivery O2 Flow Rate FiO2 02/11/17 09:19 97 21 02/11/17 08:04 98.0 62 20 108/69 94 02/11/17 05:15 98.2 65 18 105/50 96 02/11/17 04:01 72 02/11/17 02:46 66 02/11/17 02:33 98.3 66 18 108/55 96 02/11/17 02:11 62 14 108/63 02/11/17 00:00 56 18 129/79 02/10/17 23:00 62 20 119/77 02/10/17 22:08 98.5 67 20 85/ Physical Exam GENERAL: This is a well-nourished, well-developed patient, in no apparent distress. Patient speaks in clear complete sentences. Patient is pleasant. He does appear to be anxious. HEENT: Head is atraumatic and normocephalic. Neck is supple without lymphadenopathy and trachea is midline. No JVD or carotid bruits. CARDIOVASCULAR: Regular rate and rhythm without murmurs, gallops, or rubs. RESPIRATORY: Clear to auscultation. Breath sounds equal bilaterally. No wheezes , rales, or rhonchi. Chest wall is nontender. No use of accessory muscles. GASTROINTESTINAL: Abdomen is nontender, nondistended. Abdomen soft. No obvious pulsatile mass or bruit. No CVA tenderness. Strong femoral pulses bilaterally. Normal bowel sounds in all quadrants. MUSCULOSKELETAL: Patient is moving upper and lower extremities freely. No calf tenderness or edema, no Homans sign. Strong pulses in upper and lower extremities. NEUROLOGICAL: Patient is alert and oriented. Cranial nerves 2-12 are grossly intact. No focal deficits and speech is clear. SKIN: No rash and turgor is normal. Psych: Patient admits to being anxious. Denies having suicidal ideations or homicidal thoughts. Denies hallucinations or delusions. Laboratory Laboratory Tests Test 02/10/17 02/11/17 02/11/17 23:15 02:15 05:30 White Blood Count 7.6 Red Blood Count 4.25 Hemoglobin 13.9 Hematocrit 41.1 Mean Corpuscular Volume 96.8 Mean Corpuscular Hemoglobin 32.8 Mean Corpuscular Hemoglobin 33.9 Concent Red Cell Distribution Width 13.7 Platelet Count 261 Mean Platelet Volume 8.7 Neutrophils (%) (Auto) 48.1 Lymphocytes (%) (Auto) 35.4 Monocytes (%) (Auto) 12.8 Eosinophils (%) (Auto) 2.3 Basophils (%) (Auto) 1.4 Neutrophils # (Auto) 3.7 Lymphocytes # (Auto) 2.7 Monocytes # (Auto) 1.0 Eosinophils # (Auto) 0.2 Basophils # (Auto) 0.1 CBC Comment DIFF FINAL Differential Comment Prothrombin Time 11.5 Prothromb Time International 1.0 Ratio Activated Partial 27.4 Thromboplast Time Urine Color YELLOW Urine Turbidity CLEAR Urine pH 6.0 Urine Specific [place] 1.031 Urine Protein TRACE Urine Glucose (UA) NEG Urine Ketones TRACE Urine Occult Blood TRACE Urine Nitrite NEG Urine Bilirubin NEG Urine Urobilinogen LESS THAN 2.0 Urine Leukocyte Esterase NEG Urine RBC 7 Urine WBC 2 Urine Mucus FEW Microscopic Urinalysis Comment CULT NOT INDICATED Sodium Level 144 Potassium Level 3.8 Chloride Level 108 Carbon Dioxide Level 27.0 Blood Urea Nitrogen 23 Creatinine 1.10 Random Glucose 86 Calcium Level 8.4 Magnesium Level 2.2 Urine Opiates Screen NEG Urine Barbiturates Screen NEG Urine Amphetamines Screen NEG Urine Benzodiazepines Screen POS Urine Cocaine Screen NEG Urine Cannabinoids Screen POS Ethyl Alcohol Level LESS THAN 3 Anion Gap 9 Estimat Glomerular Filtration 71 Rate Total Creatine Kinase 148 125 128 Creatine Kinase MB 1.6 1.5 1.3 Troponin I LESS THAN 0.02 LESS THAN 0.02 LESS THAN 0.02 Result Diagram: 02/10/175 02/10/172314 Imaging Last 24 hours Impressions Chest X-Ray 02/10/172235 Signed Impressions: Service Date/Time: Friday, February 10, 2017 22:51 - CONCLUSION: No acute disease. Juni Krishnamurthy MD Course EKGs have sinus rhythm without significant ST segment depressions or elevations. Assessment and Plan Assessment and Plan * Chest pain: Patient has had serial cardiac enzymes and EKGs for ruling out purposes. He will be seen by Dr. Hamilton of cardiology in the chest pain center and will undergo a Lexiscan. He will be discharge if his stress test is nonischemic. * Depression: Patient is to being depressed. He does feel anxious. He is specifically denying suicidal or homicidal ideations and a question was asked several times in the presence of a nurse fireworks assembler. He will need to follow-up with his physicians. * Tobacco abuse: Patient has been counseled on the importance of smoking cessation. Patient is stable at this time. He is agreeable to this plan. Duane Mckeon February 11, 2017 10:59
[2017-02-11] MEDS ORDERED: REGADENOSON INJ 0.4 MG/5 ML SYR ONE (11:58)
--- NOTE | 2017-02-11 13:14 | RADRPT ---
EXAM DATE/TIME: 02/11/2017 11:30 [facility] COMPARISON: CHEST SINGLE AP, February 10, 2017, 22:51. INDICATIONS : Left sided chest pain with dyspnea and diaphoresis. Angina. DOSE: 25.9 mCi Tc99m Myoview at stress. 8.5 mCi Tc99m Myoview at rest. 0.4 mg Lexiscan STRESS SYMPTOMS: Short of breath. EJECTION FRACTION: 49% MEDICAL HISTORY : None SURGICAL HISTORY : None. ENCOUNTER: Initial ACUITY: 1 day PAIN SCALE: 7/10 LOCATION: Left chest TECHNIQUE: The patient underwent pharmacologic stress with infusion of prescribed dose. Continuous ECG tracing was monitored during stress. Gated SPECT imaging was performed after stress and conventional SPECT i maging was performed at rest. The examination was performed on a SPECT/CT scanner, both attenuation and non-corrected datasets were reviewed. FINDINGS: DISTRIBUTION: The maximum perfused segment at stress is in the inferior wall. PERFUSION STUDY: The pattern of perfusion at stress is within normal limits. No fixed or reversible perfusion defect i s identified. GATED STUDY: There is intact wall motion and thickening without hypokinetic or dyskinetic segments. CONCLUSION: 1. No fixed or reversible perfusion defect is identified. 2. Mildly reduced left ventricle ejection fraction without a focal wall motion abnormality identified . RISK CATEGORY: Intermediate (1-3% Annual Mortality Rate) Chandra Wong MD on February 11, 2017 at 13:08 Board Certified Radiologist. This report was verified electronically.
--- NOTE | 2017-02-11 13:52 | HHI.DCPOC ---
Discharge Care Plan Diagnosis: (1) Chest pain (2) Depression (3) Tobacco abuse Goals to Promote Your Health * To prevent worsening of your condition and complications * To maintain your health at the optimal level Directions to Meet Your Goals Take your medications as prescribed Follow your dietary instruction Follow activity as directed Keep your appointments as scheduled Take your immunizations and boosters as scheduled If your symptoms worsen call your PCP, if no PCP go to Urgent Care Center or Emergency Room Smoking is Dangerous to Your Health. Avoid second hand smoke Call the 24-hour hour crisis hotline for domestic abuse at Duane Mckeon February 11, 2017 13:52
--- NOTE | 2017-02-11 15:24 | TR ---
Date Performed: 02/11/2017 Time Performed: 12:11:13 DOCTOR: Renard Hamilton DRUG LIST: CLINICAL HISTORY: REASON FOR TEST: REASON FOR ENDING: OBSERVATION: CONCLUSION: Lexiscan stress test was performed under standard four minute protocol. Radionucl[place] e was injected one minute prior to ending the test. No electrocardiographic abormalities were present to suggest ischemia. Nuclear imaging and interpretation are pending. COMMENTS:
--- NOTE | 2017-02-11 15:29 | EKG ---
Date Performed: 02/11/2017 Time Performed: 05:17:18 PTAGE: 51 years EKG: SINUS BRADYCARDIA WITH SINUS ARRHYTHMIA BORDERLINE ECG PREVIOUS TRACING : 02/11/2017 02.15 Since previous tracing, no significant change noted DOCTOR: Renard Hamilton Interpretating Date/Time 02/11/2017 15:28:13
--- NOTE | 2017-02-11 15:31 | EKG ---
Date Performed: 02/11/2017 Time Performed: 02:15:18 PTAGE: 51 years EKG: Sinus rhythm WITH SINUS ARRHYTHMIA NORMAL ECG PREVIOUS TRACING : 02/10/2017 22.03 Since previous tracing, no significant change noted DOCTOR: Renard Hamilton Interpretating Date/Time 02/11/2017 15:30:29
--- NOTE | 2017-02-11 15:36 | EKG ---
Date Performed: 02/10/2017 Time Performed: 22:03:00 PTAGE: 51 years EKG: Sinus rhythm NORMAL ECG NO PREVIOUS TRACING DOCTOR: Renard Hamilton Interpretating Date/Time 02/11/2017 15:34:12
== END 2017-02-11 16:31 | disposition home or self-care (01) ==
LOC: NEPC 21:52 → NEDA 02-11 00:12 → NEPGCP 02-11 02:27
DX: R07.89 Other chest pain (principal); R06.02 Shortness of breath; G89.29 Other chronic pain; M79.604 Pain in right leg; R51 Headache; F41.9 Anxiety disorder, unspecified; F32.9 Major depressive disorder, single episode, unspecified; F17.210 Nicotine dependence, cigarettes, uncomplicated; Z88.8 Allergy status to other drugs, medicaments and biological substances
CPT/HCPCS: 71010; 78452; 80048; 80307; 81001; 82550; 82552; 83735; 84484; 85025; 85610; 85730; 93005; 93017; 96360; 99285; A9502; G0378; J2785; J7040

== ENCOUNTER 2017-02-13 18:47 | Emergency (ER) | payer MEDICARE ==
[~2017-02-13] VITALS: Ht 185.4 cm; Wt 69.0 kg
[~2017-02-13 18:47] MED LIST changes: +SERO200T PO
[2017-02-13 18:48] VITALS: BP 157/84; PULSE 104; RESP 20; TEMP 97.7; O2SAT 96
--- NOTE | 2017-02-13 19:03 | PD ---
Physical Exam Date Seen by Provider: February 13, 2017 Time Seen by Provider: 19:02 Narrative 51 yo male here for evaluation of voluntary psych. States he is hearing voices telling him to kill himself. He states that he is homeless. not eating. Stressed. Especifically asks to go to the [facility]. He is depressed and here to get help. Vitals sign stable. Patient awaiting bed placement. Data Data Last Documented VS Vital Signs Date Time Temp Pulse Resp B/P Pulse Ox O2 Delivery O2 Flow Rate FiO2 02/13/17 18:48 97.7 104 20 157/84 96 MDM Medical Record Reviewed: Yes Supervised Visit with YINA: No Mino Villalba February 13, 2017 19:03
--- NOTE | 2017-02-13 19:59 | PD ---
HPI Chief Complaint: Psychiatric Symptoms Time Seen by Provider: 19:58 Travel History International Travel<30 days: No Contact w/Intl Traveler<30days: No Traveled to known affect area: No History of Present Illness HPI 51-year-old male with a history of anxiety presents to the emergency department voluntarily for psychiatric evaluation. Patient states that he recently moved to [place] and has been experiencing financial difficulties. States he is "hungry and homeless" and that the "voices in my head tell me to give up." States that he feels as though life is too difficult in that he does not want to go on anymore. He denies any specific plan to harm himself. Denies any attempts to harm himself. Denies any homicidal ideations. Denies any alcohol use. Admits to occasional marijuana use. Denies IV drug use. He denies any fever, chills, nausea, vomiting, chest pain, shortness of breath, abdominal pain. No other complaints. 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 SKIN: Warm and dry. HEAD: Normocephalic and atraumatic. EYES: No injection, drainage, or hyphema noted. PERRLA. EOMI. ENT: No nasal drainage noted. Oropharynx is clear. NECK: Supple and the trachea is midline. CARDIOVASCULAR: Regular rate and rhythm. RESPIRATORY: Breath sounds are equal bilaterally with no accessory muscle use, wheezing, rhonchi, or crackles. GASTROINTESTINAL: Abdomen is soft, non-tender, and nondistended. MUSCULOSKELETAL: No obvious deformities, swelling, cyanosis, or ecchymosis is present throughout the upper and lower extremities. Patient has full range of motion without any signs of neurovascular compromise. NEUROLOGICAL: Awake, alert, and oriented. Normal speech and gait. Cranial nerves are grossly intact. Data Data Last Documented VS Vital Signs Date Time Temp Pulse Resp B/P Pulse Ox O2 Delivery O2 Flow Rate FiO2 02/13/17 19:03 20 02/13/17 18:48 97.7 104 157/84 96 Orders Complete Blood Count With Diff (02/13/17 19:55) Comprehensive Metabolic Panel (02/13/17 19:55) Psych Screen (02/13/17 19:55) Drug Screen, Random Urine (02/13/17 19:55) Alcohol (Ethanol) (02/13/17 19:55) Diet Regular Basic (02/14/17 Dinner) Labs Laboratory Tests Test 02/13/17 02/13/17 20:05 20:09 White Blood Count 7.8 TH/MM3 Red Blood Count 4.14 MIL/MM3 Hemoglobin 13.9 GM/DL Hematocrit 39.6 % Mean Corpuscular Volume 95.8 FL Mean Corpuscular Hemoglobin 33.6 PG Mean Corpuscular Hemoglobin 35.1 % Concent Red Cell Distribution Width 13.8 % Platelet Count 286 TH/MM3 Mean Platelet Volume 8.1 FL Neutrophils (%) (Auto) 51.5 % Lymphocytes (%) (Auto) 34.6 % Monocytes (%) (Auto) 10.6 % Eosinophils (%) (Auto) 1.9 % Basophils (%) (Auto) 1.4 % Neutrophils # (Auto) 4.0 TH/MM3 Lymphocytes # (Auto) 2.7 TH/MM3 Monocytes # (Auto) 0.8 TH/MM3 Eosinophils # (Auto) 0.1 TH/MM3 Basophils # (Auto) 0.1 TH/MM3 CBC Comment DIFF FINAL Differential Comment Sodium Level 141 MEQ/L Potassium Level 3.8 MEQ/L Chloride Level 107 MEQ/L Carbon Dioxide Level 25.2 MEQ/L Anion Gap 9 MEQ/L Blood Urea Nitrogen 18 MG/DL Creatinine 0.97 MG/DL Estimat Glomerular Filtration 82 ML/MIN Rate Random Glucose 97 MG/DL Calcium Level 8.7 MG/DL Total Bilirubin 0.6 MG/DL Aspartate Amino Transf 17 U/L (AST/SGOT) Alanine Aminotransferase 20 U/L (ALT/SGPT) Alkaline Phosphatase 77 U/L Total Protein 7.2 GM/DL Albumin 4.1 GM/DL Ethyl Alcohol Level LESS THAN 3 MG/DL Urine Opiates Screen NEG Urine Barbiturates Screen NEG Urine Amphetamines Screen NEG Urine Benzodiazepines Screen POS Urine Cocaine Screen NEG Urine Cannabinoids Screen POS MDM Medical Decision Making Medical Screen Exam Complete: Yes Emergency Medical Condition: Yes Differential Diagnosis Differential: Depression versus adjustment reaction versus anxiety versus PTSD versus psychosis NOS versus mood disorder NOS versus substance induced mood disorder versus ODD versus adjustment reaction versus schizophrenia versus bipolar disorder versus schizoaffective versus electrolyte abnormality versus dementia versus malingering. Narrative Course Patient presents voluntarily for psychiatric evaluation. Physical examination and vital signs are essentially unremarkable. Patient has no medical complaints to report. Psych screen has been ordered. The laboratory results are unremarkable for any acute abnormalities. The patient is medically cleared for psychiatric evaluation and disposition. Diagnosis Primary Impression: Depression Qualified Code: F32.9 - Reactive depression Scripts No Active Prescriptions or Reported Meds Shae Licea February 13, 2017 19:58
[2017-02-13 20:18] LABS: BASOPHIL # 0.1 TH/MM3 (0-0.2); BASOPHIL % 1.4 % (0.0-2.0); EOSINOPHIL # 0.1 TH/MM3 (0-0.4); EOSINOPHIL % 1.9 % (0.0-4.0); HEMATOCRIT 39.6 % (39.0-51.0); HEMO FLAGS DIFF FINAL; LYMPH % 34.6 % (9.0-44.0); LYMPHOCYTE # 2.7 TH/MM3 (1.0-4.8); MEAN CELL VOLUME 95.8 FL (80.0-100.0); MEAN CORPUSCULAR HEMOGLOBIN 33.6 PG (27.0-34.0); MEAN CORPUSCULAR HGB CONC 35.1 % (32.0-36.0); MONO % 10.6 % (0.0-8.0); NEUT % 51.5 % (16.0-70.0); PLATELET COUNT 286 TH/MM3 (150-450); RED BLOOD COUNT 4.14 MIL/MM3 (4.50-5.90); RED CELL DISTRIBUTION WIDTH 13.8 % (11.6-17.2); WHITE BLOOD COUNT 7.8 TH/MM3 (4.0-11.0)
[2017-02-13 20:32] LABS: AMPHETAMINE, URINE NEG (NEG); BARBITURATES, URINE NEG (NEG); COCAINE, URINE NEG (NEG)
[2017-02-13 20:40] LABS: ALT (GPT) 20 U/L (12-78); ANION GAP 9 MEQ/L (5-15); AST (GOT) 17 U/L (15-37); BICARBONATE 25.2 MEQ/L (21.0-32.0); BLOOD UREA NITROGEN 18 MG/DL (7-18); CHLORIDE 107 MEQ/L (98-107); GLOMERULAR FILTRATION RATE 82 ML/MIN (>89); POTASSIUM 3.8 MEQ/L (3.5-5.1); SODIUM (NA) 141 MEQ/L (136-145)
[2017-02-13 20:43] LABS: ALKALINE PHOSPHATASE 77 U/L (45-117); TOTAL BILIRUBIN ADULT 0.6 MG/DL (0.2-1.0)
[2017-02-14 00:27] VITALS: BP 124/78; PULSE 78; RESP 16; O2SAT 96
[2017-02-14 06:29] VITALS: BP 121/75; PULSE 65; RESP 16; O2SAT 98
[2017-02-14 07:14] VITALS: BP 125/80; PULSE 70; RESP 16; O2SAT 98
[2017-02-14] MEDS ORDERED: IBUPROFEN 400 MG TAB PO ONE (10:45)
--- NOTE | 2017-02-14 11:40 | PD ---
History of Present Illness Chief Complaint: Psychiatric Symptoms Time Seen by Provider: 11:40 Travel History International Travel<30 Days: No Contact w/Intl Traveler<30days: No Known affected area: No Legal Status Legal Status: Voluntary History of Present Illness: Travel History International Travel<30 days: No Contact w/Intl Traveler<30days: No Traveled to known affect area: No History of Present Illness HPI 51-year-old male with a history of anxiety presents to the emergency department voluntarily for psychiatric evaluation. ED documentation is reviewed and included in this report; " Patient states that he recently moved to [place] and has been experiencing financial difficulties. States he is "hungry and homeless" and that the "voices in my head tell me to give up." States that he feels as though life is too difficult in that he does not want to go on anymore. He denies any specific plan to harm himself. Denies any attempts to harm himself. Denies any homicidal ideations." Patient was most recently seen in ED on February 11 for evaluation of chest pain. EMR is reviewed. he was evaluated and admitted to [facility] on December 2016 with plan to follow up with [facility]. Current toxicology is positive for benzos and cannabinoids. Patient is awake, alert and oriented male, calm and engaging. Speech is clear . He states ' I hear voices in my head". These voices are not command type and he states that they talk about synagogue. When asked regarding purpose of ED visit he states " I don't get my money until tomorrow and I have no where to go until then". He also tells me that he has an appointment on February 19 at [facility] to see a psychiatrist. He is offered a voucher to [employer] which he accepts. He does not report any suicidal or homicidal ideations. Does not appear to be internally preoccupies at this time. . 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 History of Inpatient Treatment: Yes Guns or firearms in home: No Social History Singel male. Born in [place]. Moved to [facility] 2 months ago. Is currently homeless until tomorrow that he gets his SSI check. Hx Alcohol Use: No Hx Tobacco Use: Yes Hx Substance Use: No Substance Use Type: Marijuana, Cocaine Hx of Substance Use Treatment: No Family Psychiatric History Negative Allergies-Medications (Allergen,Severity, Reaction): Coded Allergies: Niacin (Verified Allergy, Severe, 02/13/17) Reported Meds & Prescriptions Reported Meds & Active Scripts Active No Active Prescriptions or Reported Medications Review of Systems Except as stated in HPI: all other systems reviewed are Neg Exam Alert: Yes [place]: Person (ox4) Mood: Calm Affect: Appropriate Speech: Clear Eye Contact: Normal Memory Intact: Comment (no impairmetn) Hallucinations: Other (negative) Delusions: No Suicidal: Ideation (deneis any) Homicidal: Ideation (deneis any) Insight/Judgement Poor. Poor MDM Medical Decision Making Medical Record Reviewed: Yes Assessment/Plan 51 year old male who presents to [facility] on a voluntary basis. he at this time is requesting assistance with obtaining mcc until tomorrow when he receives his check. He is not suicidal or homicidal, not agitated and possibly at psychiatric baseline. he is provided with [facility] voucher. Cleared from psychiatry for discharge Orders Complete Blood Count With Diff (02/13/17 19:55) Comprehensive Metabolic Panel (02/13/17 19:55) Psych Screen (02/13/17 19:55) Drug Screen, Random Urine (02/13/17 19:55) Alcohol (Ethanol) (02/13/17 19:55) Diet Regular Basic (02/14/17 Dinner) Diet Regular Basic (02/14/17 Breakfast) Ibuprofen (Motrin) (02/14/17 10:45) Results Vital Signs Date Time Temp Pulse Resp B/P Pulse Ox O2 Delivery O2 Flow Rate FiO2 02/14/17 07:14 70 16 125/80 98 Room Air 02/14/17 06:29 65 16 121/75 98 Room Air 02/14/17 00:27 78 16 124/78 96 Room Air 02/13/17 19:03 20 02/13/17 18:48 97.7 104 20 157/84 96 Laboratory Tests Test 02/13/17 02/13/17 20:05 20:09 White Blood Count 7.8 Red Blood Count 4.14 Hemoglobin 13.9 Hematocrit 39.6 Mean Corpuscular Volume 95.8 Mean Corpuscular Hemoglobin 33.6 Mean Corpuscular Hemoglobin 35.1 Concent Red Cell Distribution Width 13.8 Platelet Count 286 Mean Platelet Volume 8.1 Neutrophils (%) (Auto) 51.5 Lymphocytes (%) (Auto) 34.6 Monocytes (%) (Auto) 10.6 Eosinophils (%) (Auto) 1.9 Basophils (%) (Auto) 1.4 Neutrophils # (Auto) 4.0 Lymphocytes # (Auto) 2.7 Monocytes # (Auto) 0.8 Eosinophils # (Auto) 0.1 Basophils # (Auto) 0.1 CBC Comment DIFF FINAL Differential Comment Sodium Level 141 Potassium Level 3.8 Chloride Level 107 Carbon Dioxide Level 25.2 Anion Gap 9 Blood Urea Nitrogen 18 Creatinine 0.97 Estimat Glomerular Filtration 82 Rate Random Glucose 97 Calcium Level 8.7 Total Bilirubin 0.6 Aspartate Amino Transf 17 (AST/SGOT) Alanine Aminotransferase 20 (ALT/SGPT) Alkaline Phosphatase 77 Total Protein 7.2 Albumin 4.1 Ethyl Alcohol Level LESS THAN 3 Urine Opiates Screen NEG Urine Barbiturates Screen NEG Urine Amphetamines Screen NEG Urine Benzodiazepines Screen POS Urine Cocaine Screen NEG Urine Cannabinoids Screen POS Diagnosis 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
== END 2017-02-14 12:45 | disposition home or self-care (01) ==
LOC: NEPD 18:47
DX: F32.9 Major depressive disorder, single episode, unspecified (principal); F28 Other psychotic disorder not due to a substance or known physiological condition; G47.00 Insomnia, unspecified; Z72.0 Tobacco use; Z86.59 Personal history of other mental and behavioral disorders; Z86.69 Personal history of other diseases of the nervous system and sense organs; Z87.09 Personal history of other diseases of the respiratory system
CPT/HCPCS: 80053; 80307; 85025; 99284